=== PATIENT | female | born 1980 | race Caucasian/White ===

== ENCOUNTER 2022-12-30 12:00 | Day surgery (SDC) | payer BC ==
[~2022-12-30] VITALS: Ht 152.4 cm; Wt 95.3 kg
[~2022-12-30 12:00] MED LIST: ALBU90I
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
--- NOTE | 2022-12-30 16:08 | NUR ---
12/30/22 3589 Maria D Carcamo PT REPORTS PAIN INCREASING AND IS NOW BETWEEN A 6 & 7, PT DECLINES PAIN MEDICATION AT THIS TIMES AND BELIEVES THE PAIN IS DUE TO HER COUGHING SO MUCH
== END 2022-12-30 16:52 | disposition home or self-care (01) ==
LOC: ORSCSDS 12:00
DX: L72.0 Epidermal cyst (principal); K21.9 Gastro-esophageal reflux disease without esophagitis; F17.210 Nicotine dependence, cigarettes, uncomplicated; E66.9 Obesity, unspecified
CPT/HCPCS: 88304; A9270; J1100; J2250; J2371; J2405; J2704; J3010